=== PATIENT | male | born 1980 | race Caucasian/White ===

== ENCOUNTER 2016-03-19 07:06 | Emergency (ER) | payer OTHER, BC ==
[~2016-03-19] VITALS: Ht 167.6 cm; Wt 74.9 kg
[2016-03-19 07:07] VITALS: TEMP 36.8; Ht 167.6 cm; Wt 74.9 kg
[2016-03-19] MEDS ORDERED: MoRPHine SULFATE 4 MG/ML 1 ML CARP\\VIAL IV STA (08:14)
[2016-03-19] MEDS ORDERED: ONDANSETRON INJ 2 MG/ML 2 ML VIAL IV STA (08:14)
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
[2016-03-19] MEDS ORDERED: OXYC1TAB3 PO (09:46)
[2016-03-19 10:16] VITALS: BP 127/90; PULSE 90; O2SAT 98
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
== END 2016-03-19 10:18 | disposition home or self-care (01) ==
LOC: C.EDB 07:07 → C.EDA 10:18
DX: S12.600A Unspecified displaced fracture of seventh cervical vertebra, initial encounter for closed fracture (principal); S22.018A Other fracture of first thoracic vertebra, initial encounter for closed fracture; S22.028A Other fracture of second thoracic vertebra, initial encounter for closed fracture; S22.038A Other fracture of third thoracic vertebra, initial encounter for closed fracture; S00.01XA Abrasion of scalp, initial encounter; S60.511A Abrasion of right hand, initial encounter; S60.512A Abrasion of left hand, initial encounter; R68.84 Jaw pain; R07.9 Chest pain, unspecified; F17.228 Nicotine dependence, chewing tobacco, with other nicotine-induced disorders; V47.5XXA Car driver injured in collision with fixed or stationary object in traffic accident, initial encounter; Y92.488 Other paved roadways as the place of occurrence of the external cause

== ENCOUNTER → 2017-03-22 | Outpatient (CLI) | payer OTHER ==
--- NOTE | 2017-03-22 16:06 | DIAGNOSTIC IMAGING REPORT ---
CT SCAN OF THE CHEST WITHOUT IV CONTRAST CLINICAL HISTORY: Pulmonary nodule. COMPARISON STUDY: Chest CT dated 03/19/2016. TECHNIQUE: CT scan of the thorax was performed from the thoracic inlet to the upper abdomen. Images are reviewed in the axial, sagittal, and coronal planes. IV contrast was not administered for this examination as per the referring clinician. A dose lowering technique was utilized adhering to the principles of ALARA. CT DOSE: 271.25 mGy.cm FINDINGS: Thyroid: Imaged portions of the thyroid gland are normal in size and attenuation. Thoracic aorta: The thoracic aorta is normal in caliber and demonstrates standard 3-vessel arch anatomy. Heart: The heart is normal in size and without pericardial effusion. Lungs and pleural spaces: There is no airspace consolidation or pleural effusion. A 6 mm right middle lobe pulmonary nodule is seen on image #176. This is unchanged from 03/19/2016. No new pulmonary nodules are identified. The trachea and central airways are clear. Mediastinum: There is no mediastinal lymphadenopathy. Maxine: Not well assessed without IV contrast. Axillae: There is no axillary lymphadenopathy. Upper abdomen: Partially visualized upper abdominal viscera is within normal limits. Skeletal structures: No lytic or blastic bony lesions are seen. There is mild thoracic scoliosis. There are minimal compression deformities of T1, T2, and T3. IMPRESSION: 1. There is no airspace consolidation or pleural effusion. 2. A 6 mm indeterminant but low suspicion right middle lobe pulmonary nodule is unchanged from 03/19/2016. 3. No new pulmonary nodule is identified. Electronically signed by: Yordan Rodriguez M.D. 03/22/2017 4:04 PM Dictated Date/Time: 03/22/2017 4:00 PM
== END | disposition home or self-care (01) ==
LOC: C.CTS 15:18
PROVIDERS: ATTEND Nurse Practitioner
DX: R91.1 Solitary pulmonary nodule (principal)